=== PATIENT | female | born 1985 | race Caucasian/White ===

== ENCOUNTER 2023-09-16 14:41 | Emergency (ER) | payer OTHER ==
[2023-09-16] MEDS: Lidocaine 1% 5 ML VIAL INJECT ONE (16:39)
[2023-09-16] MEDS: Diphtheria,Pertussis(Acell),Tetanus Vaccine 0.5 ML Syringe IM ONE (16:39)
[2023-09-16] MEDS: Bacitracin Oint 1 GM U/D Packet TOP ONE (16:39)
== END 2023-09-16 17:09 | disposition home or self-care (01) ==
LOC: JP.ED 14:41
DX: S01.81XA Laceration without foreign body of other part of head, initial encounter (principal); Z88.8 Allergy status to other drugs, medicaments and biological substances; Z23 Encounter for immunization; W22.8XXA Striking against or struck by other objects, initial encounter
CPT/HCPCS: 12011; 90471; 90715; 99282-25